=== PATIENT | female | born 1960 | race Caucasian/White ===

== ENCOUNTER 2019-10-13 12:45 | Outpatient (CLI) | payer BC, SELFPAY ==
--- NOTE | 2019-10-13 14:24 | PFTS_ITS ---
Date of Study:10/13/19 Date of Dictation: MECHANICS: Forced vital capacity (FVC) is normal. Forced expiratory volume in one second (FEV1) is normal. FEV1/FVC is normal. FLOW VOLUME LOOP: Normal. LUNG VOLUMES: Total lung capacity (TLC) is normal. Residual volume (RV) is normal. DIFFUSING CAPACITY FOR CARBON MONOXIDE: Normal. INTERPRETATION: The pulmonary function tests are normal Lung volumes are normal Gas exchange (DLCO) is normal MTDD
== END 2019-10-13 12:46 | disposition home or self-care (01) ==
LOC: RT 12:48
PROVIDERS: PCP Nurse Practitioner Family; Visit Provider Nurse Practitioner Family
DX: Z87.09 Personal history of other diseases of the respiratory system (principal); I10 Essential (primary) hypertension; R53.83 Other fatigue; G43.909 Migraine, unspecified, not intractable, without status migrainosus; I34.0 Nonrheumatic mitral (valve) insufficiency; E04.1 Nontoxic single thyroid nodule
CPT/HCPCS: 94010; 94726; 94729

== ENCOUNTER 2019-11-14 16:08 | Outpatient (CLI) | payer BC, SELFPAY ==
--- NOTE | 2019-11-14 16:23 | USCV_ITS ---
Carlota Saul Age: 58 Gender: F : 1960 Exam Date: 11/14/2019 16:38 Ordering Phys: Clary Daniel Technologist: Paul Acosta Exam Location: [facility] [place] Indication: ? MR BP: 140 / 80 HR: 102 Rhythm: Sinus Technical Quality: Very technically difficult study MEASUREMENTS (Male / Female) Normal Values 2D ECHO LVOT Diameter 2.0 cm LA Diameter 4.1 cm LA Width 3.6 cm LA Height 4.2 cm RA Width 3.2 cm RA Height 4.0 cm M-MODE LV Diastolic Diameter MM 3.4 cm 4.2 - 5.9 / 3.9 - 5.3 cm LV Systolic Diameter MM 1.9 cm LV Ejection Fraction MM Teich 75.7 % IVS Diastolic Thickness MM 1.0 cm 0.6 - 1.0 / 0.6 - 0.9 cm IVS Systolic Thickness MM 1.3 cm LVPW Diastolic Thickness MM 1.2 cm 0.6 - 1.0 / 0.6 - 0.9 cm LVPW Systolic Thickness MM 1.9 cm RV Diastolic Diameter MM 2.6 cm Aortic Annulus Diameter 2.7 cm LA Ao Ratio MM 1.5 MV E Point Septal Separation 1.0 cm DOPPLER AV Peak Velocity 172.0 cm/s LVOT Peak Velocity 104.0 cm/s AV Area Cont Eq vti 2.2 cm squared AV Area Cont Eq pk 1.9 cm squared MV Area PHT 5.0 cm squared Mitral E to A Ratio 0.6 MV E' Velocity 57.0 cm/s TR Peak Velocity 171.0 cm/s TR Peak Gradient 11.7 mmHg Right Atrial Pressure 3.0 mmHg Pulmonary Artery Systolic Pressu 14.7 mmHg FINDINGS Left Ventricle Normal left ventricular size and systolic function, EF 65% . No regional wall motion abnormalities. Grade I/IV diastolic dysfunction (abnormal relaxation filling pattern), normal to mildly elevated filling pressures. Right Ventricle The right ventricle is normal in size and function. Right Atrium The right atrium is normal in size. Left Atrium Mildly increased left atrial size. Mitral Valve No gross abnormalities noted Aortic Valve Could not be visualized well Tricuspid Valve No gross abnormalities noted Pulmonic Valve Pulmonic valve not well visualized. Pericardium Normal pericardium without effusion. Aorta Normal ascending aorta dimension. CONCLUSIONS Normal left ventricular size and systolic function, EF 65% . No regional wall motion abnormalities. Grade I/IV diastolic dysfunction (abnormal relaxation filling pattern), normal to mildly elevated filling pressures. Mildly increased left atrial size. There is no pericardial effusion. There are no intracardiac masses. No previous study is available for comparison. Dr Nico Arevalo MD FACC (Electronically Signed) Final Date: 15 November 2019 13:49 S
== END 2019-11-14 16:09 | disposition home or self-care (01) ==
LOC: US 16:11
PROVIDERS: PCP Nurse Practitioner Family; Visit Provider Nurse Practitioner Family
DX: R01.1 Cardiac murmur, unspecified (principal); I10 Essential (primary) hypertension; R53.83 Other fatigue; I34.0 Nonrheumatic mitral (valve) insufficiency; E04.1 Nontoxic single thyroid nodule
CPT/HCPCS: 93306

== ENCOUNTER 2020-02-20 09:46 | Outpatient (CLI) | payer BC, SELFPAY ==
--- NOTE | 2020-02-20 09:50 | MM_ITS ---
WS: [id number] BILATERAL DIGITAL SCREENING MAMMOGRAPHY WITH CAD CLINICAL INFORMATION: SCREENING HISTORY: Screening mammogram. Increasing hardness right breast implant COMPARISON: TECHNIQUE: Bilateral CC and MLO views. FINDINGS: Bilateral breast implants. Scattered fibroglandular densities bilaterally. No suspicious focal mass, asymmetry, calcifications, or architectural distortion. No evidence of malignancy. Vascular calcification. Probably calcified br east implants bilaterally. Focal outpouching anterior right breast implant unchanged. MM/[id number] IMPRESSION: BI-RADS: 2-Benign FOLLOW UP: 1 Year Follow-up Recommend return to annual screening mammography.
== END 2020-02-20 09:47 | disposition home or self-care (01) ==
LOC: RADSHAW 09:49
PROVIDERS: PCP Nurse Practitioner Family; Visit Provider Nurse Practitioner Family
DX: Z12.31 Encounter for screening mammogram for malignant neoplasm of breast (principal)
CPT/HCPCS: 77067

== ENCOUNTER 2021-02-26 09:13 | Outpatient (CLI) | payer OTHER, SELFPAY ==
--- NOTE | 2021-02-26 09:21 | MM_ITS ---
WS: [id number] Bilateral screening digital mammogram, 02/26/2021 Clinical Data: SCREENING Comparison: 02/20/2020, 10/31/2018, 10/25/2017, 08/27/2016, 08/06/2014, 07/28/2013, 06/10/2012, 03/30/2011, 01/31, 10/05/2008, 03/25/2006. Findings: The breast parenchymal pattern shows fibroglandular tissue. No spiculated masses or clustered calcifi cations are seen. There are no secondary signs of carcinoma. The implants are intact. There is an ant erior dilatation of the right implant unchanged. There are mole markers on both breasts. MM/[id number] Impression: 1. Negative bilateral mammogram unchanged. 2. Recommend annual screening mammograms. BIRADS: 2-Benign FOLLOW UP: 1 Year Follow-up The CAD work checker was used.
== END 2021-02-26 09:14 | disposition home or self-care (01) ==
LOC: RADSHAW 09:17
PROVIDERS: PCP Nurse Practitioner Family; Visit Provider Nurse Practitioner Family
DX: Z12.31 Encounter for screening mammogram for malignant neoplasm of breast (principal)
CPT/HCPCS: 77067

== ENCOUNTER 2021-10-24 03:27 | Inpatient (IN) | payer OTHER, SELFPAY ==
[2021-10-24] VITALS (9 sets, daily range): BP systolic 109–177; BP diastolic 58–112; PULSE 71–93; RESP 14–22; TEMP 36.6–37.1; O2SAT 94–98; BMI 27.4
--- NOTE | 2021-10-24 03:34 | CTR_ITS ---
PROCEDURE INFORMATION: Exam: CT Abdomen And Pelvis Without Contrast Exam date and time: 10/24/2021 3:55 AM Age: 60 years old Clinical indication: Nausea and vomiting; Abdominal pain; Prior surgery; Surgery type: Breast aug. RT thr. Patient HX: C/O epigastric pain with n/v. ; Additional info: Abd pain TECHNIQUE: Imaging protocol: Computed tomography of the abdomen and pelvis without contrast. Radiation optimization: All CT scans at this facility use at least one of these dose optimization techniques: automated exposure control; mA and/or kV adjustment per patient size (includes targeted exams where dose is matched to clinical indication); or iterative reconstruction. COMPARISON: [facility] Hip RIGHT 2-3 views 11/18/2017 2:31 PM RADIATION DOSE METRICS: Total DLP (mGy-cm): 1549.11 FINDINGS: Diaphragm: Incompletely visualized large hiatal hernia. Liver: No acute abnormality on noncontrast imaging. Gallbladder and bile ducts: No acute abnormality. No calcified stones. No ductal dilation. Pancreas: No acute abnormality. No ductal dilation. Spleen: No acute abnormality. Adrenal glands: No acute abnormality. No mass. Kidneys and ureters: No acute abnormality. No obstructing calculi. No hydronephrosis. Stomach and bowel: Multiple dilated fluid-filled small bowel loops with air-fluid levels. Right lower abdomen/pelvis small bowel transition point with nondistended collapsed distal ileum. Nondistended colon. Colonic diverticulosis without CT evidence of diverticulitis. Appendix: Grossly normal nondilated visualized appendix. Intraperitoneal space: Minimal ascites. No free air. Vasculature: Mild atherosclerotic vascular calcification. No aortic aneurysm. Lymph nodes: No enlarged lymph nodes. Urinary bladder: Unremarkable as visualized. No bladder calculi. Reproductive: Unremarkable as visualized. Bones/joints: Thoracolumbar dextroscoliosis, multilevel spondylosis and degenerative bony changes. Previous right hip arthroplasty with metallic hardware in place. Soft tissues: Calcified bilateral breast implants. CT/CT abdomen pelvis wo con [id number] IMPRESSION: 1. Findings consistent with small-bowel obstruction. 2. Colonic diverticulosis without CT evidence of diverticulitis. 3. Minimal ascites. 4. Incompletely visualized large hiatal hernia.
--- NOTE | 2021-10-24 03:34 | W.ED.ABDPA2 ---
Documented by User: Lyubov Collins MD 10/24/21 03:38 HPI - Abdominal Pain General: Chief Complaint: Abdominal Pain Stated Complaint: N\V ABD Pain Time Seen by Provider: 10/24/21 03:28 Source: patient Mode of arrival: ambulatory Limitations: no limitations History of Present Illness: 60-year-old female states that she has had abdominal cramping along with nausea and vomiting since she ate last night at 630. She states that cramping is diffuse in nature rates her pain a 5 out of 10 she had multiple episodes of vomiting denies any diarrhea. She denies any fever she no history of abdominal surgeries denies any worsening improving factors. Associated Symptoms: Reports nausea and vomiting; Denies chills, dysuria and fever(s) Review of Systems Const: Denies: fever(s), chills, body aches or change in appetite Eyes: Denies: blurry vision or eye discomfort ENMT: Denies: throat pain or dental pain Card: Denies: chest pain Resp: Denies: dyspnea GI: Reports: abdominal pain, nausea and vomiting : Denies: dysuria Musc: Denies: neck pain or back pain Skin/Breast: Denies: rash Neuro: Denies: headache(s) Psych: Denies: depression Lb/Lymph: Denies: easy bruising All/Imm: Denies: urticaria PFSH ED PFSH: Medical History (Updated 10/24/21 @ 06:56 by Yunior Barrow DO) No pertinent past medical history Social History (Updated 10/24/21 @ 03:36 by Lyubov Collins MD) Substance/Drug Use: never Physical Exam Const: COMMON NORMALS: no acute distress, patient oriented x3 and healthy appearing HENMT: COMMON NORMALS: normocephalic and atraumatic HEAD & SCALP: normocephalic and atraumatic Eye: COMMON NORMALS: Equal, round and reactive pupils present and EOMs intact bilaterally PUPIL: Yes Equal, round and reactive pupils present Neck/C-Spine: COMMON NORMALS: full ROM and supple Chest: COMMONS NORMALS: normal inspection of the chest and normal palpation of entire chest wall Resp: COMMON NORMALS: normal respiratory effort, No retractions, No use of accessory muscles and clear to auscultation bilaterally AUSCULTATION: clear to auscultation bilaterally Cardio: COMMON NORMALS: regular rate, regular rhythm and No murmurs present (Cardio) RATE: regular rate RHYTHM: regular rhythm GI: COMMON NORMALS: Normal to inspection, nondistended, normoactive bowel sounds present, Soft to palpation, non-tender and no masses PALPATION: Yes Soft to palpation Extremity: COMMON NORMALS: normal to inspection and full ROM Neuro: COMMON NORMALS: patient oriented x3, moves all extremities and no focal motor deficits Psych: COMMON NORMALS: mental status grossly normal, Normal thought process present and cooperative THOUGHT PROCESS: Normal thought process present Skin: COMMON NORMALS: no rashes or lesions noted and no wounds GENERAL SKIN EXAM: no rashes or lesions noted Course Vital Signs: Vital signs: Vital Signs Temperature 98.7 F 10/24/21 03:34 Pulse Rate 72 10/24/21 05:13 Respiratory Rate 16 10/24/21 05:13 Blood Pressure 126/61 10/24/21 05:13 Pulse Oximetry 96 10/24/21 05:13 MDM - Abdominal Pain Lab Data : 10/24/21 03:45 10/24/21 03:45 Labs/Radiology: Radiology Impressions Abdomen/Pelvis CT 10/24/21 03:34 IMPRESSION: 1. Findings consistent with small-bowel obstruction. 2. Colonic diverticulosis without CT evidence of diverticulitis. 3. Minimal ascites. 4. Incompletely visualized large hiatal hernia. Laboratory Results WBC 11.2 10^3/uL (4.0-10.0) H 10/24/21 03:45 RBC 5.29 10^6/uL (4.1-5.3) 10/24/21 03:45 Hgb 15.2 g/dL (11.5-15.3) 10/24/21 03:45 Hct 44.2 % (37.0-47.0) 10/24/21 03:45 MCV 83.6 fl (81-99) 10/24/21 03:45 MCH 28.7 pg (28.0-34.0) 10/24/21 03:45 MCHC 34.4 g/dL (30.0-36.0) 10/24/21 03:45 RDW 12.9 % (12.1-15.1) 10/24/21 03:45 Plt Count 315 10^3/cmm (130-400) 10/24/21 03:45 MPV 9.5 fL (7.4-10.4) 10/24/21 03:45 Neut % (Auto) 78.5 % 10/24/21 03:45 Lymph % (Auto) 14.1 % 10/24/21 03:45 [place] % (Auto) 5.1 % 10/24/21 03:45 Eos % (Auto) 1.3 % 10/24/21 03:45 Baso % (Auto) 0.6 % 10/24/21 03:45 Neut # (Auto) 8.75 10^3/uL (1.8-7.7) H 10/24/21 03:45 Lymph # (Auto) 1.6 10^3/uL (0.8-4.8) 10/24/21 03:45 [place] # (Auto) 0.6 10^3/uL (0.2-0.9) 10/24/21 03:45 Eos # (Auto) 0.2 10^3/uL (0.0-0.8) 10/24/21 03:45 Baso # (Auto) 0.1 10^3/uL (0.0-0.1) 10/24/21 03:45 Nucleated RBC % (auto) 0 % 10/24/21 03:45 Nucleated RBCs # 0.0 /100WBC 10/24/21 03:45 Sodium 137 mmol/L (136-145) 10/24/21 03:45 Potassium 3.3 mmol/L (3.5-5.1) L 10/24/21 03:45 Chloride 96 mmol/L (98-107) L 10/24/21 03:45 Carbon Dioxide 27 mmol/L (22-29) 10/24/21 03:45 Anion Gap 17.3 (5-19) 10/24/21 03:45 BUN 22 mg/dL (8-23) 10/24/21 03:45 Creatinine 0.8 mg/dL (0.5-0.9) 10/24/21 03:45 GFR Calculation 72.7 mL/min (90-130) L 10/24/21 03:45 Glucose 147 mg/dL (65-115) H 10/24/21 03:45 Calculated Osmolality 290 mOsm/kg (285-295) 10/24/21 03:45 Calcium 10.2 mg/dL (8.5-10.5) 10/24/21 03:45 Total Bilirubin 0.4 mg/dL (0.15-1.2) 10/24/21 03:45 AST 24 U/L (0-32) 10/24/21 03:45 ALT 20 U/L (0-33) 10/24/21 03:45 Alkaline Phosphatase 64 IU/L (35-105) 10/24/21 03:45 Total Protein 7.6 g/dL (6.6-8.7) 10/24/21 03:45 Albumin 4.8 g/dL (3.5-5.2) 10/24/21 03:45 Globulin 2.8 g/dL (1.3-4.6) 10/24/21 03:45 Lipase 34 U/L (13-60) 10/24/21 03:45 Discharge Plan Discharge Patient Disposition: Placed in Observation Admit Provider: Karthik Koch Clinical Impression: Small bowel obstruction, Hypokalemia Condition: Stable Discharge Orders: Discharge ED (Routine); Ordered 10/24/21 Ordered By: Lyubov Collins Coding Level of Care Code ED Customer Support Associate for [facility] Fwd Exam Comprehensive Documented by User: Yunior Barrow DO 10/24/21 06:56 HPI - Abdominal Pain General: Chief Complaint: Abdominal Pain Stated Complaint: N\V ABD Pain Time Seen by Provider: 10/24/21 03:28 PFS ED PFSH: Medical History (Updated 10/24/21 @ 06:56 by Yunior Barrow DO) No pertinent past medical history Social History (Updated 10/24/21 @ 03:36 by Lyubov Collins MD) Substance/Drug Use: never Course Vital Signs: Vital signs: Vital Signs Temperature 98.7 F 10/24/21 03:34 Pulse Rate 72 10/24/21 05:13 Respiratory Rate 16 10/24/21 05:13 Blood Pressure 126/61 10/24/21 05:13 Pulse Oximetry 96 10/24/21 05:13 MDM - Abdominal Pain Medical Decision Making Care assumed from Dr. Collins at change of shift. CT shows bowel obstruction. Patient has faint bowel sounds on repeat exam they are high-pitched tinkling. She had drank a little bit of water which caused some nausea. Interestingly she has not had any previous abdominal surgeries. She does tell me she has had episodes in the past where she has eaten and then got very nauseous had some abdominal pain and on occasion vomited and usually resolves within a few hours. This episode persisted which is why she presented here. She has not previously had work-up for her gallbladder. Her liver enzymes are normal and she has not noticed particular trigger foods that consistently cause these episodes. Last bowel movement was yesterday. Remainder of her repeat exam is unremarkable. Recommend that we place her on observation with an NG tube IV fluids. Discussed with Dr. Koch on for surgery he will place her on his services for small bowel obstruction orders written. Medical Records I reviewed the patient's medical records. Lab Data I reviewed the patient's lab results. : 10/24/21 03:45 10/24/21 03:45 Labs/Radiology: Radiology Impressions Abdomen/Pelvis CT 10/24/21 03:34
[2021-10-24] MEDS: ondansetron 2 mg/ML SDV 2 mL 4 MG IVP (03:48)
[2021-10-24] MEDS: morphine 4 mg/mL SDV 1 mL IVP (03:48)
[2021-10-24] MEDS: sodium chloride 0.9% 1,000 ML 999 ML IV ×2 (03:48)
[2021-10-24 03:56] LABS: Basophils # 0.1 10^3/uL (0.0-0.1); Basophils % 0.6 %; Eosinophils # 0.2 10^3/uL (0.0-0.8); Eosinophils % 1.3 %; Hematocrit 44.2 % (37.0-47.0); Hemoglobin 15.2 g/dL (11.5-15.3); Lymphocytes # 1.6 10^3/uL (0.8-4.8); Lymphocytes % 14.1 %; Mean Corpuscular HGB Conc 34.4 g/dL (30.0-36.0); Mean Corpuscular Hemoglobin 28.7 pg (28.0-34.0); Mean Corpuscular Volume 83.6 fl (81-99); Mean Platelet Volume 9.5 fL (7.4-10.4); Monocytes # 0.6 10^3/uL (0.2-0.9); Monocytes % 5.1 %; Neutrophils # 8.75 10^3/uL (1.8-7.7); Neutrophils % 78.5 %; Nucleated Red Blood Cells % 0 %; Platelet Count 315 10^3/cmm (130-400); Red Blood Count 5.29 10^6/uL (4.1-5.3); Red Cell Distribution Width 12.9 % (12.1-15.1); White Blood Count 11.2 10^3/uL (4.0-10.0)
[2021-10-24 04:18] LABS: Alanine Aminotransferase 20 U/L (0-33); Albumin Level 4.8 g/dL (3.5-5.2); Alkaline Phosphatase 64 IU/L (35-105); Anion Gap 17.3 (5-19); Aspartate Amino Transferase 24 U/L (0-32); Blood Urea Nitrogen 22 mg/dL (8-23); Calcium 10.2 mg/dL (8.5-10.5); Carbon Dioxide 27 mmol/L (22-29); Chloride 96 mmol/L (98-107); Creatinine Clr Calc Pharmacy 71.1919; Globulin 2.8 g/dL (1.3-4.6); Glomerular Filtration Rate 72.7 mL/min (90-130); Glucose 147 mg/dL (65-115); Lipase 34 U/L (13-60); Osmolality Calculated 290 mOsm/kg (285-295); Potassium 3.3 mmol/L (3.5-5.1); Sodium 137 mmol/L (136-145); Total Bilirubin 0.4 mg/dL (0.15-1.2); Total Protein 7.6 g/dL (6.6-8.7)
[2021-10-24] MEDS: potassium chloride premix 100 ML 25 MEQ IV (06:37)
[2021-10-24] MEDS: sodium chloride 0.9% 1,000 ML 150 ML IV ×2 (06:37→12:55)
[2021-10-24] MEDS: LORazepam 2 mg/mL INJ 1 mL IVP (06:46)
[2021-10-24] MEDS: cetacaine Spray 5 gm Can 1 SPRAY TOPICAL (07:03)
--- NOTE | 2021-10-24 07:10 | XRR_ITS ---
PROCEDURE INFORMATION: Exam: XR Chest Exam date and time: 10/24/2021 7:16 AM Age: 60 years old Clinical indication: Device placement; Ng tube; Additional info: Line placement, ng placement TECHNIQUE: Imaging protocol: XR of the chest. Views: 1 view. COMPARISON: CT abdomen pelvis wo con [id number] 10/24/2021 3:55 AM FINDINGS: Tubes, catheters and devices: NG tube in place looped within patient's large hiatal hernia. Lungs: No significant or acute findings. No consolidation. Pleural spaces: No significant costophrenic angle blunting. No pneumothorax. Heart/Mediastinum: Heart size within normal limits given the portable AP technique. Bones/joints: No acute osseous abnormality. Soft tissues: Calcified bilateral breast implants. XR/XR chest 1V portable [id number] IMPRESSION: NG tube in place looped within patient's large hiatal hernia.
--- NOTE | 2021-10-24 07:25 | PC.NURSE ---
Orders received to confirm placement of NG tube via auscultation by Dr. Barrow. 60 mL of air instilled with positive confirmation by GALILEO Mckeon.
--- NOTE | 2021-10-24 09:37 | PC.CHAP ---
Pastoral Care Encounter/Spiritual Assessment Type of Contact [] Declined bath house attendant visit [] Patient/Family/Request visit [] Outpatient visit [] Follow-up visit [] Physician referral [] Code/Alert [x] Routine visit [] Staff referral [] Actively dying [] Patient sleeping [] Family support [] [] Out of room [] Palliative care [] [] Receiving care in room [] Pre-surgical visit [] Trauma [] Long length of stay [] ICU visit [] Other: Relational/Emotional Strength x[] Patient feels connected with others/family/visitors/staff [] Distress [] Loneliness/isolation [] Abandonment Spirituality of Patient [x] Person of Kaycee [] Attends Scientologist of their Kaycee [x] Believes in Prayer [] Reads Bible or Hoahaoism materials x [] There are Spiritual issues to be addressed [facility] [employer] M Supervisor Interventions [x] Prayer [x] Active listening x[] Non-anxious presence [x] Spiritual/emotional support [] Crisis/trauma care [] Spiritual counseling [] Bereavement support [] Provided bereavement packet [] Provided Bible/devotional materials [] Provided toy/stuffed animal, coloring book to patient or family member [] Provided Communion [] Anointing/[place] [] Salvation [x Completed spiritual assessment [] Other: Impact on Illness or Injury [] Angry [] Fearful [] Anxious [] Often cries [] Exhaustion [] Unable to work [] Unable to attend adventist [] Unable to walk/stand [] Unable to read [] Unable to drive [] Unable to eat/drink [] Unable to sleep [] Unable to be with family [] Patient intubated [] Other: Summary Time spent with patient 10 mj in
--- NOTE | 2021-10-24 14:07 | PM.HP ---
Providers/Chief Complaint Admitting Physician: Karthik Koch DO Primary Care Provider: KAYLEE Wu Chief Complaint: N\V ABD Pain History of Present Illness Carlota Saul is a 60 year old female who presented to hospital with 1 day history of abdominal pain nausea and vomiting. Her abdominal pain was diffuse and constant. Pain was moderate and did not radiate. She reports no abdominal pain at this time. Her last bowel movement was yesterday. She does report that she is passing flatus. She denies any fever or chills. She denies any sick contacts. She does not believe she ate any bad food. She has never had abdominal surgery. Review of Systems General: Reports: 10 or more systems reviewed and unremarkable except in HPI and below Medications/Allergies Home Medications Medication Instructions Recorded Confirmed Last Taken Type albuterol sulfate 90 mcg/actuation 1 - 2 puff INHALATION Q6H PRN 10/24/21 10/24/21 Unknown History aerosol inhaler albuterol sulfate 90 mcg/actuation 2 puff INHALATION Q4H PRN 10/24/21 10/24/21 Unknown History aerosol inhaler (Ventolin HFA) hydrochlorothiazide 25 mg tablet 25 mg PO DAILY 10/24/21 10/24/21 Unknown History pmjvxdvf-fhlz-tea-folic acid 18 1 tab PO DAILY 10/24/21 10/24/21 Unknown History mg-0.4 mg tablet (One Daily For Women) ondansetron 4 mg disintegrating 4 mg PO Q6H PRN #14 tab 10/24/21 Unknown Rx tablet sumatriptan succinate 100 mg tablet 50 mg PO Q2H PRN 10/24/21 10/24/21 Unknown History Allergies Allergy/AdvReac Type Severity Reaction Status Date / Time No Known Allergies Allergy Verified 10/24/21 09:47 PFSH Acute PFSH: Medical History No pertinent past medical history Social History Substance/Drug Use: never Vitals/I&O/Wt Last Vital Signs Temp 97.9 F 10/24/21 11:46 Pulse 84 10/24/21 11:46 Resp 16 10/24/21 11:46 BP 109/62 10/24/21 11:46 Pulse Ox 98 10/24/21 11:46 10/23/21 10/24/21 10/24/21 22:59 06:59 14:59 Output Total 500 / 500 Balance -500 / -500 Weight last 48 hrs Weight 160 lb Physical Exam Narrative: General : Patient is well developed , no acute distress, oriented x3 Head : Normal cephalic, a-traumatic. Ears : Pinnae and external canal are normal. Hearing is normal. Eyes : PERRLA, Sclera and injection are normal. No conjunctival discharge. Nose : Mucous membranes are without erythema. Throat : buccal mucosa is normal, gums are without significant recession or hypertrophy. Lungs : Equal chest rise bilaterally, no use of accessory muscles, trachea is midline. Cor : Rate and rhythm are normal. Abdomen : Soft, moderate distention, NT, no g/r/m Extremities : No edema, no cyanosis or clubbing, dorsalis pedis pulses are present bilaterally, non-tender to palpation of calves. Upper extremities are normal bilaterally. Back : non-tender to palpation, no CVA tenderness. Neuro : CN II - XII intact, Upper and lower extremities have equal and full strength Data : 10/24/21 03:45 10/24/21 03:45 CT Abd/Pel: My impression: Small bowel obstruction with transition point in the right lower quadrant A&P Assessment and plan (1) Partial small bowel obstruction: Status: Acute Plan N.p.o. NG tube to low intermittent wall suction IV fluids Ambulate See orders No acute surgical intervention Attestations Medical Necessity Statement*: Patient has a small bowel obstruction. She requires IV fluids and nasogastric tube Coding Level of Care Code Acute Paddle Dyeing Machine Operator for [facility] Fwd Diagnoses Partial small bowel obstruction K56.600
[2021-10-24 15:15] LABS: Add Urine Microscopic? NO; Charge for UA Resulting for Rev
[2021-10-24 15:47] LABS: Bilirubin Urine Neg (Negative); Blood Urine Neg (Negative); Glucose Urine UA Norm (Normal); Ketones Urine Negative (Negative); Leukocyte Esterase Urine Negative (Negative); Nitrate Urine Negative (Negative); Protein Urine Neg (Negative); Specific Gravity, Urine 1.005 (1.005-1.030); Urine Appearance Clear (CLEAR); Urine Color Yellow (Yellow); Urobilinogen Urine Norm (Negative); pH Urine 7 (5-7)
[2021-10-25] VITALS (7 sets, daily range): BP systolic 110–127; BP diastolic 66–80; PULSE 69–89; RESP 16–17; TEMP 36.3–36.8; O2SAT 91–96
[2021-10-25 05:59] LABS: Basophils # 0.1 10^3/uL (0.0-0.1); Basophils % 0.8 %; Eosinophils # 0.3 10^3/uL (0.0-0.8); Hematocrit 37.4 % (37.0-47.0); Hemoglobin 12.4 g/dL (11.5-15.3); Lymphocytes # 1.7 10^3/uL (0.8-4.8); Lymphocytes % 26.1 %; Mean Corpuscular HGB Conc 33.2 g/dL (30.0-36.0); Mean Corpuscular Hemoglobin 28.8 pg (28.0-34.0); Mean Corpuscular Volume 86.8 fl (81-99); Mean Platelet Volume 10.1 fL (7.4-10.4); Monocytes # 0.6 10^3/uL (0.2-0.9); Neutrophils # 3.88 10^3/uL (1.8-7.7); Neutrophils % 58.8 %; Nucleated Red Blood Cells % 0 %; Platelet Count 217 10^3/cmm (130-400); Red Blood Count 4.31 10^6/uL (4.1-5.3); Red Cell Distribution Width 13.2 % (12.1-15.1); White Blood Count 6.6 10^3/uL (4.0-10.0)
--- NOTE | 2021-10-25 06:00 | XRR_ITS ---
PROCEDURE INFORMATION: Exam: XR Abdomen Exam date and time: 10/25/2021 9:06 AM Age: 60 years old Clinical indication: Bloating; Additional info: Am TECHNIQUE: Imaging protocol: XR of the abdomen. Views: Frontal supine view of the abdomen. 1 View. COMPARISON: CT abdomen pelvis wo con [id number] 10/24/2021 3:55 AM FINDINGS: Tubes, catheters and devices: The nasogastric tube is appropriately positioned with the tip in the stomach, well beyond the diaphragmatic hiatus. Gastrointestinal tract: Bowel gas pattern is unremarkable. No visibly dilated small bowel. Intraperitoneal space: No gross free air. Bones/joints: The right hip prosthesis is intact and well aligned. There is moderate degenerative disease in the lumbar spine. Mild broad-based convex-right lumbar scoliosis. XR/XR [id number] IMPRESSION: No sign of obstruction. No dilated gas-filled small bowel.
[2021-10-25 06:22] LABS: Albumin Level 3.5 g/dL (3.5-5.2); Alkaline Phosphatase 47 IU/L (35-105); Blood Urea Nitrogen 8 mg/dL (8-23); Calcium 8.8 mg/dL (8.5-10.5); Carbon Dioxide 24 mmol/L (22-29); Chloride 104 mmol/L (98-107); Globulin 2.4 g/dL (1.3-4.6); Glucose 86 mg/dL (65-115); Osmolality Calculated 286 mOsm/kg (285-295); Sodium 139 mmol/L (136-145); Total Bilirubin 0.3 mg/dL (0.15-1.2); Total Protein 5.9 g/dL (6.6-8.7)
[2021-10-25 06:26] LABS: Alanine Aminotransferase 17 U/L (0-33); Anion Gap 14.9 (5-19); Aspartate Amino Transferase 30 U/L (0-32); Potassium 3.9 mmol/L (3.5-5.1)
--- NOTE | 2021-10-25 11:57 | PM.PN ---
Subjective Subjective: Patient denies any abdominal pain. She is still passing flatus but has not had a bowel movement. Denies any nausea or vomiting. Vitals/I&O/Wt Last Vital Signs Temp 98.1 F 10/25/21 07:53 Pulse 69 10/25/21 07:53 Resp 16 10/25/21 07:53 BP 121/66 10/25/21 07:53 Pulse Ox 96 10/25/21 07:53 10/24/21 10/25/21 10/25/21 22:59 06:59 14:59 Intake Total 775 / 1875 0 / 1875 Output Total 1000 / 1000 Balance 775 / 1375 0 / 1375 -1000 / -1000 Weight last 48 hrs Weight 133 lb 1.6 oz Weight 160 lb Physical Exam Narrative: General : Patient is well developed , no acute distress, oriented x3 Head : Normal cephalic, a-traumatic. Ears : Pinnae and external canal are normal. Hearing is normal. Eyes : PERRLA, Sclera and injection are normal. No conjunctival discharge. Nose : Mucous membranes are without erythema. Throat : buccal mucosa is normal, gums are without significant recession or hypertrophy. Lungs : Equal chest rise bilaterally, no use of accessory muscles, trachea is midline. Cor : Rate and rhythm are normal. Abdomen : Soft, Mild D, NT, no g/r/m NGT with bilious output Extremities : No edema, no cyanosis or clubbing, dorsalis pedis pulses are present bilaterally, non-tender to palpation of calves. Upper extremities are normal bilaterally. Back : non-tender to palpation, no CVA tenderness. Neuro : CN II - XII intact, Upper and lower extremities have equal and full strength Data : 10/25/21 04:35 10/25/21 04:35 A&P Assessment and plan (1) Partial small bowel obstruction: Status: Acute Plan Replace IV IV fluids at 150 mL/h NG tube to low intermittent wall suction May clamp NG tube for 30 minutes to have patient ambulate in halls Will pull NG tube and give clear liquids once patient has bowel movement Attestations Medical Necessity Statement*: Patient still has a partial small bowel obstruction. She requires nasogastric tube suctioning and IV fluids. Will likely need 2 more nights in the hospital at least. Coding Level of Care Code Acute Triage Clinician for [facility] Fwd Diagnoses Partial small bowel obstruction K56.600
[2021-10-25] MEDS: sodium chloride 0.9% 1,000 ML 150 ML IV ×3 (13:02→22:02)
[2021-10-26] VITALS (8 sets, daily range): BP systolic 112–154; BP diastolic 71–87; PULSE 73–88; RESP 16–17; TEMP 36.5–36.8; O2SAT 92–96
[2021-10-26] MEDS: sodium chloride 0.9% 1,000 ML 150 ML IV ×3 (06:09→20:59)
[2021-10-26] MEDS: ondansetron 2 mg/ML SDV 2 mL 4 MG IVP (06:20)
--- NOTE | 2021-10-26 12:03 | P.PN_ITS ---
Subjective Subjective: Patient denies any abdominal pain. She is still passing flatus but has not had a bowel movement yet. Denies any nausea or vomiting. Vitals/I&O/Wt Last Vital Signs Temp 97.7 F 10/26/21 11:58 Pulse 77 10/26/21 11:58 Resp 16 10/26/21 11:58 BP 113/75 10/26/21 11:58 Pulse Ox 96 10/26/21 11:58 10/25/21 10/26/21 10/26/21 22:59 06:59 14:59 Intake Total 1000 / 1257.5 940 / 2197.5 0 / 0 Output Total 1000 / 2850 1000 / 3850 1000 / 1000 Balance 0 / -1592.5 -60 / -1652.5 -1000 / -1000 Weight last 48 hrs Weight 133 lb 1.6 oz Physical Exam Narrative: General : Patient is well developed , no acute distress, oriented x3 Head : Normal cephalic, a-traumatic. Ears : Pinnae and external canal are normal. Hearing is normal. Eyes : PERRLA, Sclera and injection are normal. No conjunctival discharge. Nose : Mucous membranes are without erythema. Throat : buccal mucosa is normal, gums are without significant recession or hypertrophy. Lungs : Equal chest rise bilaterally, no use of accessory muscles, trachea is midline. Cor : Rate and rhythm are normal. Abdomen : Soft, minimal D, NT, no g/r/m NGT with bilious output Extremities : No edema, no cyanosis or clubbing, dorsalis pedis pulses are present bilaterally, non-tender to palpation of calves. Upper extremities are normal bilaterally. Back : non-tender to palpation, no CVA tenderness. Neuro : CN II - XII intact, Upper and lower extremities have equal and full strength Data : 10/25/21 04:35 10/25/21 04:35 A&P Assessment and plan (1) Partial small bowel obstruction: Status: Acute Plan Replace IV IV fluids at 150 mL/h NG tube to low intermittent wall suction May clamp NG tube for 30 minutes to have patient ambulate in halls Will pull NG tube and give clear liquids once patient has bowel movement Attestations Medical Necessity Statement*: Patient still requires NGT and IVF. May need two more nights or more. Coding Level of Care Code Acute Architect Intern for [facility] Fwd Diagnoses Partial small bowel obstruction K56.600
[2021-10-27] MEDS: sodium chloride 0.9% 1,000 ML 150 ML IV ×3 (03:42→22:06)
[2021-10-27 04:00] VITALS: BP 115/71; PULSE 79; RESP 17; TEMP 37.1; O2SAT 94
--- NOTE | 2021-10-27 07:15 | PC.NURSE ---
NG tube canister changed at shift change
[2021-10-27 07:57] VITALS: BP 147/94; PULSE 80; RESP 16; TEMP 36.5; O2SAT 94
[2021-10-27 08:41] LABS: Basophils % 0.5 %; Eosinophils # 0.3 10^3/uL (0.0-0.8); Eosinophils % 3.3 %; Hematocrit 40.6 % (37.0-47.0); Hemoglobin 13.4 g/dL (11.5-15.3); Lymphocytes % 22.8 %; Mean Corpuscular Volume 87.9 fl (81-99); Mean Platelet Volume 9.5 fL (7.4-10.4); Monocytes # 0.7 10^3/uL (0.2-0.9); Neutrophils # 5.61 10^3/uL (1.8-7.7); Neutrophils % 65.1 %; Nucleated Red Blood Cells % 0 %; Platelet Count 203 10^3/cmm (130-400); Red Blood Count 4.62 10^6/uL (4.1-5.3); Red Cell Distribution Width 13.2 % (12.1-15.1); White Blood Count 8.6 10^3/uL (4.0-10.0)
[2021-10-27 08:52] LABS: Blood Urea Nitrogen 11 mg/dL (8-23); Calcium 8.9 mg/dL (8.5-10.5); Carbon Dioxide 24 mmol/L (22-29); Chloride 108 mmol/L (98-107); Glomerular Filtration Rate 101.3 mL/min (90-130); Glucose 80 mg/dL (65-115); Magnesium 1.9 mg/dL (1.7-2.3); Osmolality Calculated 300 mOsm/kg (285-295); Sodium 146 mmol/L (136-145)
[2021-10-27 09:08] LABS: Anion Gap 17.5 (5-19); Potassium 3.5 mmol/L (3.5-5.1)
--- NOTE | 2021-10-27 09:43 | XRR_ITS ---
PROCEDURE INFORMATION: Exam: XR Abdomen Exam date and time: 10/27/2021 10:10 AM Age: 60 years old Clinical indication: Condition or disease; Intestinal condition; Obstruction; Patient HX: Constipation since . Came in vomiting and was sick 7-8hrs with nausea and vomiting after being admitted. PT says she is not in any pain at all just unable to have a bowel movement; Additional info: Sbo TECHNIQUE: Imaging protocol: XR of the abdomen. Views: 2 Views. Upright and supine views. COMPARISON: CR (ABDOMEN, ) 10/25/2021 9:06 AM FINDINGS: Gastrointestinal tract: Normal. No bowel dilation. Intraperitoneal space: Normal. No free air. Bones/joints: There is osteoarthritis seen with multilevel intervertebral disc space narrowing in the dorsolumbar spine with bone spurs. There is dorsolumbar dextroscoliosis NG tube is present the distal side hole appears to be just distal to the EG junction area. Comparison to prior examination this tube is stable in position. XR/XR acute abdomen series [id number] IMPRESSION: No acute findings. NG tube is in the stomach. Dorsolumbar spine osteoarthritis and dextroscoliosis.
[2021-10-27 11:44] VITALS: BP 137/81; PULSE 76; RESP 16; TEMP 37.1; O2SAT 92
[2021-10-27 16:00] VITALS: BP 134/76; PULSE 105; RESP 16; TEMP 36.6; O2SAT 93
--- NOTE | 2021-10-27 18:20 | PM.PN ---
Subjective Subjective: Patient denies any abdominal pain. She is still passing flatus but still has not had a bowel movement yet. Denies any nausea or vomiting. Vitals/I&O/Wt Last Vital Signs Temp 97.9 F 10/27/21 16:00 Pulse 105 H 10/27/21 16:00 Resp 16 10/27/21 16:00 BP 134/76 10/27/21 16:00 Pulse Ox 93 10/27/21 16:00 10/27/21 10/27/21 10/27/21 06:59 14:59 22:59 Intake Total 1000 / 3000 0 / 0 1240 / 1240 Output Total 1700 / 4700 800 / 800 Balance -700 / -1700 -800 / -800 1240 / 440 Physical Exam Narrative: General : Patient is well developed , no acute distress, oriented x3 Head : Normal cephalic, a-traumatic. Ears : Pinnae and external canal are normal. Hearing is normal. Eyes : PERRLA, Sclera and injection are normal. No conjunctival discharge. Nose : Mucous membranes are without erythema. Throat : buccal mucosa is normal, gums are without significant recession or hypertrophy. Lungs : Equal chest rise bilaterally, no use of accessory muscles, trachea is midline. Cor : Rate and rhythm are normal. Abdomen : Soft, non D, NT, no g/r/m NGT with bilious output Extremities : No edema, no cyanosis or clubbing, dorsalis pedis pulses are present bilaterally, non-tender to palpation of calves. Upper extremities are normal bilaterally. Back : non-tender to palpation, no CVA tenderness. Neuro : CN II - XII intact, Upper and lower extremities have equal and full strength Data : 10/27/21 08:26 10/27/21 08:26 Other Imaging: My impression: Acute abdominal series showing normal bowel gas pattern A&P Assessment and plan (1) Partial small bowel obstruction: Status: Acute Plan IV fluids at 150 mL/h Clear liquid diet Will pull NG tube and give clear liquids once patient has bowel movement Attestations Medical Necessity Statement*: Patient with partial small bowel obstruction. Requires further monitoring and diet management. Currently only on clear liquids. Will need at least 1 more day in the hospital. 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
[2021-10-27 20:00] VITALS: BP 135/84; PULSE 74; RESP 17; TEMP 36.4; O2SAT 98
[2021-10-28] VITALS: BP 106/63; PULSE 74; RESP 17; TEMP 37.3; O2SAT 95
[2021-10-28 04:00] VITALS: BP 128/83; PULSE 88; RESP 16; TEMP 37.2; O2SAT 96
[2021-10-28 04:45] LABS: Basophils # 0.1 10^3/uL (0.0-0.1); Basophils % 0.8 %; Eosinophils # 0.6 10^3/uL (0.0-0.8); Eosinophils % 7.8 %; Hematocrit 36.9 % (37.0-47.0); Hemoglobin 12.3 g/dL (11.5-15.3); Lymphocytes # 2.1 10^3/uL (0.8-4.8); Lymphocytes % 27.2 %; Mean Corpuscular HGB Conc 33.3 g/dL (30.0-36.0); Mean Corpuscular Hemoglobin 28.9 pg (28.0-34.0); Mean Corpuscular Volume 86.8 fl (81-99); Mean Platelet Volume 9.7 fL (7.4-10.4); Monocytes # 0.7 10^3/uL (0.2-0.9); Monocytes % 9.1 %; Neutrophils # 4.22 10^3/uL (1.8-7.7); Neutrophils % 54.7 %; Nucleated Red Blood Cells % 0 %; Platelet Count 250 10^3/cmm (130-400); Red Blood Count 4.25 10^6/uL (4.1-5.3); Red Cell Distribution Width 13.1 % (12.1-15.1); White Blood Count 7.7 10^3/uL (4.0-10.0)
[2021-10-28 05:06] LABS: Blood Urea Nitrogen 7 mg/dL (8-23); Calcium 8.7 mg/dL (8.5-10.5); Carbon Dioxide 26 mmol/L (22-29); Chloride 104 mmol/L (98-107); Glucose 95 mg/dL (65-115); Magnesium 1.9 mg/dL (1.7-2.3); Osmolality Calculated 286 mOsm/kg (285-295); Sodium 139 mmol/L (136-145)
[2021-10-28] MEDS: sodium chloride 0.9% 1,000 ML 150 ML IV ×2 (05:14→12:21)
[2021-10-28 07:33] VITALS: BP 136/82; PULSE 74; RESP 17; TEMP 36.8; O2SAT 96
[2021-10-28 11:19] VITALS: BP 128/83; PULSE 65; RESP 17; TEMP 36.6; O2SAT 98
[2021-10-28] MEDS: potassium chloride ER 20 mEq Tablet 40 MEQ PO (12:20)
--- NOTE | 2021-10-28 14:47 | P.DS_ITS ---
Discharge Providers Date of Admission: 10/24/21 06:21 Date of Discharge: October 28, 2021 Attending Provider at Admission: Karthik Koch DO Attending Provider at Discharge: Karthik Koch DO Primary Care Provider: KAYLEE Wu Diagnoses at Discharge Discharge Diagnosis (1) Partial small bowel obstruction: Status: Acute Reason for Visit Reason for Visit: N\V ABD Pain Hospital Course Hospital Course Patient presented the hospital with nausea vomiting and abdominal pain. She was found to have a partial small bowel obstruction likely secondary to gastroenteritis. She was treated with IV fluids and decompression therapy with NG tube. She progressed slowly to clear liquid diet and then a soft diet. She is discharged home in good condition Physical Exam Narrative: General : Patient is well developed , no acute distress, oriented x3 Head : Normal cephalic, a-traumatic. Ears : Pinnae and external canal are normal. Hearing is normal. Eyes : PERRLA, Sclera and injection are normal. No conjunctival discharge. Nose : Mucous membranes are without erythema. Throat : buccal mucosa is normal, gums are without significant recession or hypertrophy. Lungs : Equal chest rise bilaterally, no use of accessory muscles, trachea is midline. Cor : Rate and rhythm are normal. Abdomen : Soft, ND, NT, no g/r/m Extremities : No edema, no cyanosis or clubbing, dorsalis pedis pulses are present bilaterally, non-tender to palpation of calves. Upper extremities are normal bilaterally. Back : non-tender to palpation, no CVA tenderness. Neuro : CN II - XII intact, Upper and lower extremities have equal and full strength Discharge Data Studies Completed and Pending Completed Studies During Hospitalization Category Date Time Status CT abdomen pelvis wo con [id number] Urgent Cat Scan 10/24/21 03:34 Completed XR KUB [id number] Routine Exams 10/25/21 06:00 Completed XR acute abdomen series [id number] Routine Exams 10/27/21 09:43 Completed XR chest 1V portable [id number] Routine Exams 10/24/21 07:10 Completed Pending at discharge Category Date Time Status BMP [Basic Metabolic Panel] AM LABS Lab 10/29/21 04:00 Ordered CBC Auto Diff [Complete Blood Count w/Auto] AM LABS Lab 10/29/21 04:00 Ordered Magnesium AM LABS Lab 10/29/21 04:00 Ordered Radiology Impressions Abdomen/Pelvis CT 10/24/21 03:34 IMPRESSION: 1. Findings consistent with small-bowel obstruction. 2. Colonic diverticulosis without CT evidence of diverticulitis. 3. Minimal ascites. 4. Incompletely visualized large hiatal hernia. Chest X-Ray 10/24/21 07:10 IMPRESSION: NG tube in place looped within patient's large hiatal hernia. KUB X-Ray 10/25/21 06:00 IMPRESSION: No sign of obstruction. No dilated gas-filled small bowel. Chest/Abdomen X-ray 10/27/21 09:43 IMPRESSION: No acute findings. NG tube is in the stomach. Dorsolumbar spine osteoarthritis and dextroscoliosis. Laboratory Results WBC 7.7 10^3/uL (4.0-10.0) 10/28/21 04:20 RBC 4.25 10^6/uL (4.1-5.3) 10/28/21 04:20 Hgb 12.3 g/dL (11.5-15.3) 10/28/21 04:20 Hct 36.9 % (37.0-47.0) L 10/28/21 04:20 MCV 86.8 fl (81-99) 10/28/21 04:20 MCH 28.9 pg (28.0-34.0) 10/28/21 04:20 MCHC 33.3 g/dL (30.0-36.0) 10/28/21 04:20 RDW 13.1 % (12.1-15.1) 10/28/21 04:20 Plt Count 250 10^3/cmm (130-400) 10/28/21 04:20 MPV 9.7 fL (7.4-10.4) 10/28/21 04:20 Neut % (Auto) 54.7 % 10/28/21 04:20 Lymph % (Auto) 27.2 % 10/28/21 04:20 [place] % (Auto) 9.1 % 10/28/21 04:20 Eos % (Auto) 7.8 % 10/28/21 04:20 Baso % (Auto) 0.8 % 10/28/21 04:20 Neut # (Auto) 4.22 10^3/uL (1.8-7.7) 10/28/21 04:20 Lymph # (Auto) 2.1 10^3/uL (0.8-4.8) 10/28/21 04:20 [place] # (Auto) 0.7 10^3/uL (0.2-0.9) 10/28/21 04:20 Eos # (Auto) 0.6 10^3/uL (0.0-0.8) 10/28/21 04:20 Baso # (Auto) 0.1 10^3/uL (0.0-0.1) 10/28/21 04:20 Nucleated RBC % (auto) 0 % 10/28/21 04:20 Nucleated RBCs # 0.0 /100WBC 10/28/21 04:20 Sodium 139 mmol/L (136-145) 10/28/21 04:20 Potassium 3.0 mmol/L (3.5-5.1) L 10/28/21 04:20 Chloride 104 mmol/L (98-107) 10/28/21 04:20 Carbon Dioxide 26 mmol/L (22-29) 10/28/21 04:20 Anion Gap 12.0 (5-19) 10/28/21 04:20 BUN 7 mg/dL (8-23) L 10/28/21 04:20 Creatinine 0.5 mg/dL (0.5-0.9) 10/28/21 04:20 GFR Calculation 125.0 mL/min (90-130) 10/28/21 04:20 Glucose 95 mg/dL (65-115) 10/28/21 04:20 Calculated Osmolality 286 mOsm/kg (285-295) 10/28/21 04:20 Calcium 8.7 mg/dL (8.5-10.5) 10/28/21 04:20 Magnesium 1.9 mg/dL (1.7-2.3) 10/28/21 04:20 Total Bilirubin 0.3 mg/dL (0.15-1.2) 10/25/21 04:35 AST 30 U/L (0-32) 10/25/21 04:35 ALT 17 U/L (0-33) 10/25/21 04:35 Alkaline Phosphatase 47 IU/L (35-105) 10/25/21 04:35 Total Protein 5.9 g/dL (6.6-8.7) L 10/25/21 04:35 Albumin 3.5 g/dL (3.5-5.2) 10/25/21 04:35 Globulin 2.4 g/dL (1.3-4.6) 10/25/21 04:35 Lipase 34 U/L (13-60) 10/24/21 03:45 Urine Color Yellow (Yellow) 10/24/21 09:16 Urine Appearance Clear (CLEAR) 10/24/21 09:16 Urine pH 7 (5-7) 10/24/21 09:16 Ur Specific Thomas 1.005 (1.005-1.030) 10/24/21 09:16 Urine Protein Neg (Negative) 10/24/21 09:16 Urine Glucose (UA) Norm (Normal) 10/24/21 09:16 Urine Ketones Negative (Negative) 10/24/21 09:16 Urine Blood Neg (Negative) 10/24/21 09:16 Urine Nitrate Negative (Negative) 10/24/21 09:16 Urine Bilirubin Neg (Negative) 10/24/21 09:16 Urine Urobilinogen Norm mg/dL (Negative) 10/24/21 09:16 Ur Leukocyte Esterase Negative (Negative) 10/24/21 09:16 Vitals Last Vital Signs Temp 97.9 F 10/28/21 11:19 Pulse 65 10/28/21 11:19 Resp 17 10/28/21 11:19 BP 128/83 10/28/21 11:19 Pulse Ox 98 10/28/21 11:19 Discharge Plan Discharge Patient Disposition: Home Condition: Stable Prescriptions: New ondansetron 4 mg tablet,disintegrating 4 mg PO Q6H PRN (Reason: nausea and vomiting) Qty: 14 0RF No Action sumatriptan succinate 100 mg tablet 50 mg PO Q2H PRN (Reason: Migraine Headache) 0RF hydrochlorothiazide 25 mg tablet 25 mg PO DAILY 0RF albuterol sulfate 90 mcg/actuation HFA aerosol inhaler 1 - 2 puff INHALATION Q6H PRN (Reason: Shortness Of Breath) 0RF Ventolin HFA 90 mcg/actuation HFA aerosol inhaler 2 puff INHALATION Q4H PRN (Reason: Shortness Of Breath) 0RF One Daily For Women 18-0.4 mg Tablet 1 tab PO DAILY 0RF Discharge Orders: Discharge Order (Routine); Ordered 10/28/21 Ordered By: Karthik Koch Referrals: Clary Daniel FNP [Primary Care Provider] - 1-3 days Discharge Diet: Advance as tolerated Discharge Activity: Resume usual activity Patient Instructions: Acute Nausea and Vomiting (ED), Opioid Safety Discharge Attestations Time Spent in Discharge Care*: less than 30 min Quality Metrics Clinical Quality Measures [ No reported AMI, CVA or VTE this stay] Coding Level of Care Code Acute Chg FW DC note Diagnoses Partial small bowel obstruction K56.600
[2021-10-28 15:31] VITALS: BP 126/81; PULSE 82; RESP 17; TEMP 36.4; O2SAT 98
[2021-10-28 17:01] VITALS: BP 126/81; PULSE 82; RESP 17; TEMP 36.4; O2SAT 98
== END 2021-10-28 16:20 | disposition home or self-care (01) | DRG 390 ==
LOC: ER 05:56 → MEDSURG 06:50
PROVIDERS: Emergency Medicine; Admitting Provider Surgery; Emergency Provider Family Medicine; PCP Nurse Practitioner Family; Visit Provider Surgery
DX: K56.600 Partial intestinal obstruction, unspecified as to cause (principal); E87.6 Hypokalemia; K52.9 Noninfective gastroenteritis and colitis, unspecified
CPT/HCPCS: 36415; 71045; 74018; 74022; 74176; 80048; 80053; 81003; 83690; 83735; 85025; 96365; 96366; 96375; 99285; J2060; J2270; J2405; J3480; J7030

== ENCOUNTER → 2021-11-21 08:59 | Outpatient (BNVA) | payer OTHER, SELFPAY | PROVIDERS: PCP Nurse Practitioner Family | DX: E87.6 Hypokalemia (principal); E87.5 Hyperkalemia; E78.5 Hyperlipidemia, unspecified | CPT/HCPCS: 80053; 80061 ==

== ENCOUNTER → 2022-02-19 15:11 | Outpatient (BNVA) | payer OTHER, SELFPAY | PROVIDERS: PCP Nurse Practitioner Family; Visit Provider Nurse Practitioner Family | DX: R53.83 Other fatigue (principal); L20.9 Atopic dermatitis, unspecified; L98.9 Disorder of the skin and subcutaneous tissue, unspecified | CPT/HCPCS: 84443 ==

== ENCOUNTER 2022-03-06 10:42 | Outpatient (CLI) | payer OTHER, SELFPAY ==
--- NOTE | 2022-03-06 11:13 | XR_ITS ---
WS: [id number] Right knee, 3 views, 03/06/2022 Clinical Data: knee pain Comparison: None. Findings: No fractures or dislocations are seen. The joint spaces are normal. The patella is intact. The soft t issues are unremarkable. XR/XR knee RT 3V* [id number] Impression: Negative right knee. Kellgren-Scotty Classification: grade 0 (none): definite absence of x-ray romaine nges of osteoarthritis
--- NOTE | 2022-03-06 15:21 | MM_ITS ---
WS: [id number] BILATERAL 3D TOMOSYNTHESIS DIGITAL SCREENING MAMMOGRAPHY WITH CAD CLINICAL INFORMATION: SCREENING HISTORY: Screening mammogram. No current complaints. COMPARISON: 02/26/21 TECHNIQUE: Bilateral CC and MLO views. FINDINGS: Intact calcified breast implants bilaterally. Focal outpouching anterior RIGHT breast impla nt unchanged Scattered fibroglandular densities bilaterally. No suspicious focal mass, asymmetry, calcifications, or architectural distortion. No evidence of malignancy. Vascular calcification. MM/[place] [id number] IMPRESSION: BI-RADS: 2-Benign FOLLOW UP: 1 Year Follow-up Recommend return to annual screening mammography.
== END 2022-03-06 10:43 | disposition home or self-care (01) ==
PROVIDERS: PCP Nurse Practitioner Family; Visit Provider Nurse Practitioner Family
DX: Z12.31 Encounter for screening mammogram for malignant neoplasm of breast (principal); M25.561 Pain in right knee
CPT/HCPCS: 73562; 77063; 77067

== ENCOUNTER → 2022-03-26 14:39 | Outpatient (BNVA) | payer OTHER, SELFPAY | PROVIDERS: PCP Nurse Practitioner Family; Visit Provider Family Medicine | DX: L65.0 Telogen effluvium (principal) | CPT/HCPCS: 85025 ==

== ENCOUNTER → 2022-03-30 11:13 | Outpatient (BNVA) | payer OTHER, SELFPAY | PROVIDERS: PCP Nurse Practitioner Family; Visit Provider Clinical Nurse Specialist Adult Health | DX: R53.83 Other fatigue (principal); L20.9 Atopic dermatitis, unspecified; L65.0 Telogen effluvium | CPT/HCPCS: 82306; 82607; 82728; 83550; 84630; 85025 ==

== ENCOUNTER → 2023-02-02 13:13 | Outpatient (BNVA) | payer OTHER, SELFPAY | PROVIDERS: PCP Clinical Nurse Specialist Adult Health; Visit Provider Clinical Nurse Specialist Adult Health | DX: Z01.89 Encounter for other specified special examinations (principal); L20.9 Atopic dermatitis, unspecified; R53.83 Other fatigue | CPT/HCPCS: 82652; 82728; 82746; 84439; 84630 ==

== ENCOUNTER → 2023-02-15 10:41 | Outpatient (BNVA) | payer OTHER, SELFPAY | PROVIDERS: PCP Clinical Nurse Specialist Adult Health; Visit Provider Clinical Nurse Specialist Adult Health | DX: L20.9 Atopic dermatitis, unspecified (principal); R53.83 Other fatigue; I10 Essential (primary) hypertension; Z00.00 Encounter for general adult medical examination without abnormal findings | CPT/HCPCS: 80053; 82652; 84439; 84630; 85025 ==

== ENCOUNTER → 2023-02-22 10:15 | Outpatient (BNVA) | payer OTHER, SELFPAY | PROVIDERS: PCP Clinical Nurse Specialist Adult Health; Visit Provider Clinical Nurse Specialist Adult Health | DX: L20.9 Atopic dermatitis, unspecified (principal); R53.83 Other fatigue; Z01.89 Encounter for other specified special examinations | CPT/HCPCS: 82728; 82746 ==

== ENCOUNTER 2023-03-25 09:13 | Outpatient (CLI) | payer OTHER, SELFPAY ==
--- NOTE | 2023-03-25 09:17 | MM_ITS ---
WS: [id number] BILATERAL SCREENING DIGITAL BREAST MAMMOGRAPHY WITH CELESTINA DISPLACEMENT VIEWS. CAD PERFORMED. HISTORY: SCREENING COMPARISON: 03/06/2022 and 02/26/2021 Bilateral craniocaudal and mediolateral oblique views are performed with tomosynthesis and SM. Celestina displacement views in CC and MLO projection also performed. Breasts composition: There are scattered areas of fibroglandular density. Implants are similar and c onfiguration as on the prior study. Dense capsular calcifications with contraction of the implants. V alysia similar configuration as compared to the prior studies. There are several small areas of outpouch ing greatest on the RIGHT. No suspicious mass or calcifications within the breast. IMPRESSION: MM/[place] [id number] BI-RADS: 2-Benign FOLLOW-UP: 1 Year Follow-up
== END 2023-03-25 09:14 | disposition home or self-care (01) ==
PROVIDERS: PCP Clinical Nurse Specialist Adult Health; Visit Provider Clinical Nurse Specialist Adult Health
DX: Z12.31 Encounter for screening mammogram for malignant neoplasm of breast (principal)
CPT/HCPCS: 77063; 77067

== ENCOUNTER 2023-11-29 06:00 | Outpatient (CLI) | payer MEDICARE, SELFPAY | END 2023-11-29 06:01 | disposition home or self-care (01) | LOC: RAD 01-30 07:46 | PROVIDERS: PCP Clinical Nurse Specialist Adult Health; Visit Provider Clinical Nurse Specialist Adult Health | DX: Z00.00 Encounter for general adult medical examination without abnormal findings (principal) | CPT/HCPCS: 80053 ==

== ENCOUNTER → 2023-12-03 10:58 | Outpatient (BNVA) | payer MEDICARE, OTHER, SELFPAY | PROVIDERS: PCP Clinical Nurse Specialist Adult Health; Visit Provider Surgery | DX: R19.4 Change in bowel habit (principal); R03.0 Elevated blood-pressure reading, without diagnosis of hypertension; R19.7 Diarrhea, unspecified; R10.9 Unspecified abdominal pain; R19.5 Other fecal abnormalities | CPT/HCPCS: 99204 ==

== ENCOUNTER 2023-12-14 07:05 | Outpatient (CLI) | payer MEDICARE, OTHER, SELFPAY ==
--- NOTE | 2023-12-14 07:30 | US_ITS ---
WS: [id number] RIGHT UPPER QUADRANT ULTRASOUND HISTORY: Abdominal pain COMPARISON: None available. Liver: 13.7 cm in length. Normal size liver and echogenicity. No bile duct dilatation or mass. Portal Vein: Normal hepatopetal flow with monophasic waveform. Gallbladder: Normally distended gallbladder with no stones or wall thickening. CBD: 0.2 cm Pancreas: Not visualized. Right kidney: 8.2 cm in length. Low normal size kidney. No mass or hydronephrosis. Aorta and IVC: Unremarkable abdominal aorta and IVC. No ascites. US/US gall bladder [id number] IMPRESSION: 1. Normal gallbladder. 2. No hepatobiliary duct dilatation. 3. Low normal size kidney.
== END 2023-12-14 07:06 | disposition home or self-care (01) ==
LOC: RAD 07:05
PROVIDERS: PCP Clinical Nurse Specialist Adult Health; Visit Provider Surgery
DX: R10.9 Unspecified abdominal pain (principal)
CPT/HCPCS: 76705

== ENCOUNTER → 2024-01-19 13:38 | Outpatient (BNVA) | payer MEDICARE, SELFPAY | PROVIDERS: PCP Clinical Nurse Specialist Adult Health; Visit Provider Surgery | DX: R19.4 Change in bowel habit (principal) | CPT/HCPCS: 99214 ==

== ENCOUNTER 2024-03-02 10:39 | Day surgery (SDC) | payer MEDICARE, SELFPAY ==
[2024-03-02 10:45] VITALS: BP 162/107; PULSE 108; RESP 18; TEMP 36.1; O2SAT 97
[2024-03-02 10:53] VITALS: BMI 28.3
--- NOTE | 2024-03-02 10:55 | W.PM.OPSFHP ---
Same Day Surgery H&P Indication for Procedure/HPI DATE OF PROCEDURE: March 02, 2024 CHIEF COMPLAINT/INDICATIONFOR SURGICAL PROCEDURE: diarrhea PREOP DIAGNOSIS: chronic diarrhea and need for screening colonoscopy PLANNED PROCEDURE: Operation Date: 03/02/24 11:40 Proposed Procedures p EGD / [id number],07686,G0105,R19.4, R19.5(Not Applicable) - Jad Dutta MD s Colonoscopy(Not Applicable) - Jad Dutta MD Medications/Allergies* Home Medications Medication Instructions Recorded Confirmed Type zfvnondl-sxdl-efh-folic acid 18 1 tab PO DAILY 10/24/21 03/02/24 History mg-0.4 mg tablet (One Daily For Women) hydrochlorothiazide 25 mg tablet 25 mg PO DAILY 02/29/24 03/02/24 History ketoconazole 2 % shampoo See Rx Instructions .Route 02/29/24 03/02/24 History .COMPLEX PRN HAIR LOSS Allergies/Adverse Reactions Allergy/AdvReac Type Severity Reaction Status Date / Time ramipril [From Altace] Allergy Severe ALGY-Hives Verified 02/29/24 13:51 Pertinent History/Comorbid Conditions* Medical History (Updated 12/27/23 @ 08:10 by Calros Pinto NP) Hiatal hernia Diverticulosis Hypersomnia declined sleep study Positive colorectal cancer screening using Cologuard test Migraines Hypertension Atopic dermatitis of scalp Fatigue Surgical History (Updated 11/26/22 @ 10:24 by Carlos Pinto NP) Hx of breast augmentation Family History (Updated 11/26/22 @ 10:25 by Carlos Pinto NP) Diabetes Cancer Hypertension Denies family history of Anesthesia complication Bleeding disorder Social History Smoking and tobacco/nicotine status: never used tobacco/nicotine Alcohol intake: never Substance/Drug Use: never Pertinent Exam Findings alert and clear to auscultation bilaterally Recommendations Surgery/Procedure today Coding Level of Care Code Acute Code for Chg Fwd
[2024-03-02] MEDS: sodium chloride 0.9% 1,000 ML 30 ML IV (11:02)
--- NOTE | 2024-03-02 11:33 | ANES.PREANE2 ---
Pre-Anesthetic Assessment Height/Weight: Height 1.63 m Weight 74.843 kg Temp Pulse Resp BP Pulse Ox O2 Del Method 97.0 F L 108 H 18 162/107 97 Room Air 03/02/24 10:45 03/02/24 10:45 03/02/24 10:45 03/02/24 10:45 03/02/24 10:45 03/02/24 10:45 Preop Diagnosis: chronic diarrhea and need for screening colonoscopy Operation Date: 03/02/24 11:40 Proposed Procedures p EGD / [id number],19934,G0105,R19.4, R19.5(Not Applicable) - Jad Dutta MD s Colonoscopy(Not Applicable) - Jad Dutta MD Familial anesthetic complications: none Was Beta Jose taken within 24 hours: N/A Was Clonidine taken within 24 hours: N/A Last intake: Intake Last Liquid Date 03/01/24 Last Liquid Time 20:00 Last Solid Date 02/29/24 Last Solid Time 18:00 Social No alcohol and No tobacco Exam alert, oriented x 3 and clear to auscultation bilaterally Airway Mallampati: Class II Dentition: full History/ROS No significant history except as noted Pulmonary Asthma (rarely uses inhaler) CV/HEM Hypertension None reported Hepatic None reported GI chronic diarrhea Metabolic None reported Musc/skel None reported Neuropsych migranes Anesthetic Plan ASA status: 2 Anesthesia: Anesthesia Evaluation and MAC Risk of > 500 ml blood loss (7ml/kg in children): No Medications/Allergies Home Medications Medication Instructions Recorded Confirmed Last Taken Type hssmurnl-rdhr-lyw-folic acid 18 1 tab PO DAILY 10/24/21 03/02/24 02/29/24 History mg-0.4 mg tablet (One Daily For Women) minoxidil 5 % topical solution 1 ml topical BID #120 mL 03/18/22 03/02/24 02/26/24 Rx sumatriptan succinate 100 mg tablet See Rx Instructions .Route 05/11/23 03/02/24 03/01/24 Rx .COMPLEX #9 tabs hydrochlorothiazide 25 mg tablet 25 mg PO DAILY 02/29/24 03/02/24 02/28/24 History ketoconazole 2 % shampoo See Rx Instructions .Route 02/29/24 03/02/24 02/27/24 History .COMPLEX PRN HAIR LOSS Allergies Allergy/AdvReac Type Severity Reaction Status Date / Time ramipril [From Altace] Allergy Severe ALGY-Hives Verified 02/29/24 13:51 Current Medications Generic Name Dose Route Start Last Admin Trade Name Freq PRN Reason Stop Dose Admin Sodium Chloride 1,000 mls @ 30 mls/hr 03/02/24 10:45 03/02/24 11:02 Sodium Chloride 0.9% IV 30 mls/hr .Q24H ADOLFO Administration PFSH Anesthesia Medical History Hiatal hernia Diverticulosis Hypersomnia declined sleep study Positive colorectal cancer screening using Cologuard test Migraines Hypertension Atopic dermatitis of scalp Fatigue Surgical History (Updated 01/19/24 @ 14:[address]) Hx of breast augmentation Family History Other Cancer Diabetes Hypertension Denies family history of Anesthesia complication Bleeding disorder Social History Smoking and tobacco/nicotine status: never used tobacco/nicotine Alcohol intake: never Substance/Drug Use: never Data Anesthesia Cardiac Studies: Echocardiogram Ultrasound 11/14/19
[2024-03-02 11:44] VITALS: BP 98/69; PULSE 80; RESP 16; TEMP 36.1; O2SAT 96
[2024-03-02 11:50] VITALS: BP 106/64; PULSE 77; RESP 18; O2SAT 97
[2024-03-02 12:00] VITALS: BP 134/73; PULSE 75; RESP 18; O2SAT 98
[2024-03-02 12:10] VITALS: BP 131/67; PULSE 78; RESP 18; O2SAT 100
--- NOTE | 2024-03-02 12:30 | ANE.PACU2 ---
Inpatient post-anesthesia follow up: Airway intact: Yes Vital signs: Temperature 97.0 F Pulse Rate 78 Respiratory Rate 18 Blood Pressure 131/67 Pulse Oximetry 100 Oxygen Delivery Me thod Room Air Oxygen Flow Rate 2 Fraction of Inspir ed Oxygen Hydration adequate: Yes Nausea and vomiting: No Pain level: 1 Mental status: Baseline
== END 2024-03-02 12:33 | disposition home or self-care (01) ==
PROVIDERS: PCP Clinical Nurse Specialist Adult Health; Visit Provider Surgery
PROC: 0DJ08ZZ Inspection of Upper Intestinal Tract, Via Natural or Artificial Opening Endoscopic (ICD-10-PCS; CPT 43235; principal; 2024-03-02 11:40)
PROC: 0DJD8ZZ Inspection of Lower Intestinal Tract, Via Natural or Artificial Opening Endoscopic (ICD-10-PCS; CPT 45378; 2024-03-02 11:40)
DX: K52.9 Noninfective gastroenteritis and colitis, unspecified (principal); K63.89 Other specified diseases of intestine; D12.8 Benign neoplasm of rectum; I10 Essential (primary) hypertension; K21.9 Gastro-esophageal reflux disease without esophagitis; K44.9 Diaphragmatic hernia without obstruction or gangrene; K29.70 Gastritis, unspecified, without bleeding
CPT/HCPCS: 43239; 45380; 88305; J2704; J7030

== ENCOUNTER → 2024-03-21 13:07 | Outpatient (BNVA) | payer MEDICARE, SELFPAY | PROVIDERS: PCP Clinical Nurse Specialist Adult Health; Visit Provider Surgery | DX: K44.9 Diaphragmatic hernia without obstruction or gangrene (principal); Z09 Encounter for follow-up examination after completed treatment for conditions other than malignant neoplasm | CPT/HCPCS: 99213 ==

== ENCOUNTER 2024-03-27 10:35 | Outpatient (CLI) | payer MEDICARE, SELFPAY ==
--- NOTE | 2024-03-27 11:30 | MM_ITS ---
WS: [id number] BILATERAL SCREENING DIGITAL BREAST MAMMOGRAPHY WITH CELESTINA DISPLACEMENT VIEWS. CAD PERFORMED. HISTORY: screening mammogram COMPARISON: 03/25/2023, 03/06/2022 Bilateral craniocaudal and mediolateral oblique views are performed with tomosynthesis and SM. Celestina displacement views in CC and MLO projection also performed. Breasts composition: There are scattered areas of fibroglandular density. Prepectoral implants with irregular margins and adjacent fibroglandular densities. Partial contractio n and calcifications surrounding the implants. The remaining breasts are stable. No soft tissue mass or distortion. No calcifications. MM/MM scr BI tomosynthesis [id number] IMPRESSION: BI-RADS: 2 - Benign. FOLLOW-UP: 1 Year Follow-up
== END 2024-03-27 10:36 | disposition home or self-care (01) ==
LOC: RAD 10:35
PROVIDERS: PCP Clinical Nurse Specialist Adult Health; Visit Provider Clinical Nurse Specialist Adult Health
DX: Z12.31 Encounter for screening mammogram for malignant neoplasm of breast (principal); R92.323 Mammographic fibroglandular density, bilateral breasts; Z98.82 Breast implant status
CPT/HCPCS: 77063; 77067

== ENCOUNTER → 2024-04-03 09:59 | Outpatient (BNVA) | payer MEDICARE, SELFPAY | PROVIDERS: PCP Clinical Nurse Specialist Adult Health; Visit Provider Nurse Practitioner Family | DX: L65.0 Telogen effluvium (principal) | CPT/HCPCS: 17000; 99214 ==

== ENCOUNTER 2025-03-29 09:06 | Outpatient (CLI) | payer MEDICARE, SELFPAY ==
--- NOTE | 2025-03-29 09:25 | MM_ITS ---
WS: [id number] BILATERAL SCREENING DIGITAL BREAST MAMMOGRAPHY WITH CELESTINA DISPLACEMENT VIEWS. CAD PERFORMED. HISTORY: SCREENING COMPARISON: 03/27/2024, 03/25/2023 Bilateral craniocaudal and mediolateral oblique views are performed with tomosynthesis and SM. Celestina displacement views in CC and MLO projection also performed. Breasts composition: There are scattered areas of fibroglandular density. Extensive capsular contraction of the breast implants. There is a partial collapse with extravasation from the implants. Lobulated contour. Implants are stable over multiple prior years. No suspicious masses or calcifications within either breast. There are a few benign calcifications. MM/MM scr BI tomosynthesis [id number] IMPRESSION: BI-RADS: 2 - Benign. FOLLOW-UP: 1 Year Follow-up
== END 2025-03-29 09:07 | disposition home or self-care (01) ==
PROVIDERS: PCP Clinical Nurse Specialist Adult Health; Visit Provider Clinical Nurse Specialist Adult Health
DX: Z12.31 Encounter for screening mammogram for malignant neoplasm of breast (principal); R92.323 Mammographic fibroglandular density, bilateral breasts; R92.1 Mammographic calcification found on diagnostic imaging of breast; Z98.82 Breast implant status; T85.44XA Capsular contracture of breast implant, initial encounter
CPT/HCPCS: 77063; 77067

== ENCOUNTER → 2025-04-05 09:57 | Outpatient (BNVA) | payer MEDICARE, SELFPAY | PROVIDERS: PCP Clinical Nurse Specialist Adult Health; Visit Provider Nurse Practitioner Family | DX: L65.9 Nonscarring hair loss, unspecified (principal) | CPT/HCPCS: 99214 ==